=== PATIENT | female | born 1955 | race Caucasian/White ===

== ENCOUNTER 2020-11-20 09:59 | Emergency (ER) | payer MEDICARE ==
[2020-11-20 11:32] LABS: HEMOGLOBIN 13.5 gm/dl (12.3-15.3); RED BLOOD COUNT 4.09 M/UL (4.00-5.10); WHITE BLOOD COUNT 9.1 K/UL (4.5-11.0)
[2020-11-20 12:07] LABS: BUN/CREATININE RATIO 19 (0-10)
[2020-11-20] MEDS ORDERED: HYDROCODON-ACE1 EAC4 PO (15:53)
== END 2020-11-20 16:13 | disposition home or self-care (01) ==
LOC: ER1 09:59
PROVIDERS: Physician Assistant
DX: R60.0 Localized edema (principal); M25.571 Pain in right ankle and joints of right foot; I10 Essential (primary) hypertension; F17.200 Nicotine dependence, unspecified, uncomplicated; Z79.899 Other long term (current) drug therapy
CPT/HCPCS: 73610; 80053; 84550; 85025; 85652; 86140; 99283